=== PATIENT | female | born 1935 | race Caucasian/White ===

== ENCOUNTER → 2016-07-19 | Outpatient (CLI) | payer OTHER ==
[2016-07-19 13:26] LABS: ESTIMATED AVERAGE GLUCOSE 120 mg/dl; HA1C FLAG Normal (Normal)
[2016-07-19 13:41] LABS: THYROID STIMULATING HORMONE 1.06 uIu/ml (0.300-4.500)
== END | disposition home or self-care (01) ==
LOC: C.LABMFLN 07:05
PROVIDERS: ATTEND Family Medicine
DX: E78.5 Hyperlipidemia, unspecified (principal); E11.9 Type 2 diabetes mellitus without complications; E03.9 Hypothyroidism, unspecified; C50.919 Malignant neoplasm of unspecified site of unspecified female breast; I50.9 Heart failure, unspecified

== ENCOUNTER → 2017-08-24 | Outpatient (CLI) | payer OTHER ==
[2017-08-24 13:30] LABS: HEMOGLOBIN A1C 5.7 % (4.5-5.6)
[2017-08-24 14:31] LABS: CHOLESTEROL 114 mg/dl (0-200); LDL CHOLESTEROL (DIRECT) 60 mg/dl
== END | disposition home or self-care (01) ==
LOC: C.LABMFLN 08:25
PROVIDERS: ATTEND Family Medicine
DX: E78.5 Hyperlipidemia, unspecified (principal); E11.9 Type 2 diabetes mellitus without complications; N19 Unspecified kidney failure; E55.9 Vitamin D deficiency, unspecified; R06.02 Shortness of breath; G56.01 Carpal tunnel syndrome, right upper limb